=== PATIENT | male | born 1980 | race Caucasian/White ===

== ENCOUNTER 2017-09-10 11:52 | Day surgery (SDC) | payer OTHER ==
[2017-09-10] MEDS ORDERED: DIPHENHYDRAMINE 50 MG INJ (14:17)
[2017-09-10] MEDS ORDERED: FENTAnyl 50 MCG/ML VIAL ×2 (14:48)
[2017-09-10] MEDS ORDERED: MIDAZOLAM 1 MG/ML 2 ML INJ ×3 (14:48→14:49)
== END 2017-09-10 17:21 | disposition home or self-care (01) ==
LOC: GIL 11:52
DX: K64.9 Unspecified hemorrhoids (principal); K57.90 Diverticulosis of intestine, part unspecified, without perforation or abscess without bleeding; D12.6 Benign neoplasm of colon, unspecified; K20.8 Other esophagitis
CPT/HCPCS: 43235; 88305